=== PATIENT | female | born 1995 | race Caucasian/White ===

== ENCOUNTER → 2019-10-10 12:41 | Outpatient (BNVA) | payer OTHER, MEDICAID, SELFPAY | PROVIDERS: Family Provider Family Medicine; Visit Provider Nurse Practitioner Family | DX: J02.8 Acute pharyngitis due to other specified organisms (principal) | CPT/HCPCS: 87081; 87880 ==

== ENCOUNTER 2019-11-01 20:34 | Emergency (ER) | payer MEDICAID, SELFPAY ==
[2019-11-01 20:49] VITALS: BP 150/103; PULSE 109; RESP 18; TEMP 35.8; O2SAT 97
--- NOTE | 2019-11-01 21:08 | USR_ITS ---
NOTE: Report was unsigned for reason: Order was edited. Original Signature date and time was: 11/01/19 PROCEDURE INFORMATION: Exam: US , Transvaginal Exam date and time: 11/01/2019 9:43 PM Age: 24 years old Clinical indication: Other: Vag bleed unsure of dates; Patient HX: on home preg test; Additional info: Cramping and vaginal bleeding TECHNIQUE: Imaging protocol: Real-time transvaginal obstetrical ultrasound of the maternal pelvis and a first trimester with image documentation. Transvaginal imaging was used for better evaluation of the fetus and adnexa. COMPARISON: US [facility] [place] OB > 14 weeks 09/26/2017 7:51 AM FINDINGS: GESTATION: Gestation: No IUP is identified. MATERNAL: Uterus: Uterus is normal in size and appearance. Endometrium is thickened measuring 15 mm. Right adnexa: Right ovary is unremarkable. Left adnexa: There is a small simple cyst in the left ovary measuring around 13 mm. MTDD US/US OB lmt with transvaginal IMPRESSION: No IUP is identified. Correlation with quantitative beta HCG levels is suggested. Follow-up ultrasound is recommended.
--- NOTE | 2019-11-01 21:19 | ED_ITS ---
HPI - General: Chief complaint: Vaginal Bleeding Stated complaint: -06/07 DUE DATE/SON JUMPED ON BELLY Time Seen by Provider: 11/01/19 21:08 History of Present Illness: HPI Narrative: Patient is a 24-year-old female that has had a positive at-home test and is projected to be around 10 to 11 weeks who comes into the ED with some vaginal bleeding and cramping. Patient's last normal. Was close to 2 months ago. She had some light bleeding about 4 weeks ago but it was not not like her normal. Patient states that yesterday her 2-year-old son jumped off the couch and landed on her belly. Last night she started to have some spotting and some pelvic cramping. The bleeding resolved last night and she is not have any vaginal bleeding at all today. She still has some pelvic cramping. She took Tylenol for the cramping pain at 8:30 PM tonight. Denies any UTI symptoms. Patient states she does not need to get the RhoGam shot and members her previous OB telling her to tell her next OB doctor that. Associated symptoms: Deny abdominal pain, dysuria, headache(s), nausea or vomiting Review of Systems Const: Denies: fever, chills or fatigue Eyes: Denies: change in vision or eye discomfort ENMT: Denies: throat pain, painful swallowing, nasal discharge or nasal congestion Card: Denies: chest pain, palpitations, edema, swelling of feet/ankles, shortness of breath on exertion or shortness of breath when lying down Resp: Denies: shortness of breath, productive cough or non-productive cough GI: Denies: abdominal pain, nausea, vomiting, diarrhea, constipation or blood in stool : Reports: vaginal bleeding (spotting yesterday, has resolved today) and pelvic pain; Denies: flank pain, painful urination or blood in urine Musc: Denies: neck pain, back pain or extremity swelling Skin/Breast: Denies: rash or new lesion Neuro: Denies: headache, numbness in extremities or weakness in extremities PFS ED PFSH: Social History Smoking and tobacco status: current every day smoker Second hand smoke exposure: No Physical Exam Narrative: EXAM NARRATIVE: Patient is a 24-year-old female that is sitting comfortably on the exam bed when I enter the room. She is showing no signs of acute distress or pain. Const: COMMON NORMALS: oriented x3 HENMT: COMMON NORMALS: normocephalic HEAD & SCALP: normocephalic MOUTH: oral and palatal mucosa normal THROAT: posterior oropharynx normal and uvula midline Eye: COMMON NORMALS: PERRL PUPIL: Yes PERRL Neck/C-Spine: COMMON NORMALS: supple GENERAL: Yes normal visual inspection Resp: COMMON NORMALS: normal respiratory effort, no retractions, no use of accessory muscles and clear to auscultation bilaterally EFFORT & INSPECTION: Yes able to speak in complete sentences AUSCULTATION: clear to auscultation bilaterally Cardio: COMMON NORMALS: regular rate, regular rhythm, S1 normal heart sound, S2 normal heart sound, no gallops, no clicks, no murmurs and peripheral pulses 2+ throughout RATE: regular rate RHYTHM: regular rhythm HEART SOUNDS: S1 normal and S2 normal PERIPHERAL PULSES: pulses 2+ throughout GI: COMMON NORMALS: normal to inspection, nondistended, normoactive bowel sounds, soft to palpation and no masses INSPECTION: Yes central obesity PALPATION: Yes soft and Yes tender Details: other (Pelvic?right and left side mild tenderness upon palpation.) : COMMON NORMALS: Yes no CVA tenderness BLADDER/KIDNEY EXAM: Yes no CVA tenderness Back/Pelvis: COMMON NORMALS: no CVA tenderness Extremity: COMMON NORMALS: normal to inspection Neuro: COMMON NORMALS: oriented x3 and moves all extremities Skin: COMMON NORMALS: no rashes or lesions noted GENERAL SKIN EXAM: no rashes or lesions noted and dry skin Course Vital Signs: Vital signs: Vital Signs Temperature 96.4 F L 11/01/19 20:49 Pulse Rate 88 11/01/19 22:20 Respiratory Rate 18 11/01/19 22:20 Blood Pressure 110/80 11/01/19 22:20 Pulse Oximetry 97 11/01/19 22:20 MDM - OB/Uterine Contractions MDM Narrative: Medical decision making narrative: Patient is a 24-year-old female comes to the ED with a positive test at home and now having some vaginal bleeding and cramping. Vaginal bleeding was light yesterday and has not had any bleeding today. Pelvic pain cramping is mild. Today patient was unaware of how far along she currently is, but thought she is possibly 11 weeks . hCG quant was 182. Ultrasound showed no intrauterine identified. CBC and CMP and UA were all unremarkable. Patient has a scheduled appointment with her PCP/OB in about a week. I told patient to come back to the ED if symptoms worsen or she has any intense abdominal pain, severe vaginal bleeding or fevers. Patient understood and agreed with plan. Lab Data: Attestation: I reviewed the patient's lab results. Labs: Lab Results 11/01/19 11/01/19 11/01/19 Range/Units 20:57 21:24 21:24 WBC 9.4 (4.0-10.0) 10^3/ uL RBC 4.71 (4.1-5.3) 10^6/u L Hgb 13.3 (11.5-15.3) g/dL Hct 40.6 (37.0-47.0) % MCV 86.2 (81-99) fL MCH 28.2 (28.0-34.0) pg MCHC 32.8 (30.0-36.0) g/dL RDW 12.8 (12.1-15.1) % Plt Count 252 (130-400) 10^3/c mm MPV 10.1 (7.4-10.4) fL Neut % (Auto) 66.6 % Lymph % (Auto) 23.3 % [place] % (Auto) 6.7 % Eos % (Auto) 2.6 % Baso % (Auto) 0.3 % Neut # (Auto) 6.3 (1.8-7.7) 10^3/u L Lymph # (Auto) 2.2 (0.8-4.8) 10^3/u L [place] # (Auto) 0.6 (0.2-0.9) 10^3/u L Eos # (Auto) 0.2 (0.0-0.8) 10^3/u L Baso # (Auto) 0.0 (0.0-0.1) 10^3/u L Nucleated RBC % (a uto) 0 % Nucleated RBCs # 0.0 /100WBC Sodium (136-145) mmol/L Potassium (3.5-5.1) mmol/L Chloride (98-107) mmol/L Carbon Dioxide (22-29) mmol/L Anion Gap (5-19) BUN (6-20) mg/dL Creatinine (0.5-0.9) mg/dL GFR Calculation (90-130) mL/min Glucose (65-115) mg/dL Calculated Osmolal ity (285-295) mOsm/k g Calcium (8.5-10.5) mg/dL Total Bilirubin (0.15-1.2) mg/dL AST (0-32) U/L ALT (0-33) U/L Alkaline Phosphata se (35-105) IU/L Total Protein (6.6-8.7) g/dL Albumin (3.5-5.2) g/dL Globulin (1.3-4.6) g/dL Ser , Trent i-Qnt mIU/mL Urine Color Yellow (Yellow) Urine Appearance Cloudy (CLEAR) Urine pH 5 (5-7) Ur Specific Gravit y 1.020 (1.005-1.030) Urine Protein Neg (Negative) Urine Glucose (UA) Norm (Normal) Urine Ketones Negative (Negative) Urine Blood Neg (Negative) Urine Nitrate Negative (Negative) Urine Bilirubin Neg (NEGATIVE) Urine Urobilinogen Norm (Negative) mg/dL Ur Leukocyte Jennifer ase Negative (Negative) Urine RBC None (0-2) /hpf Urine WBC None (0-5) /hpf Ur Squamous Epith Cells 5-10 H (0-5) Urine Bacteria 1+ H (NONE) Blood Type O Positive Rho(D) Type Positive Antibody Screen Negative 11/01/19 Range/Units 21:24 WBC (4.0-10.0) 10^3/ uL RBC (4.1-5.3) 10^6/u L Hgb (11.5-15.3) g/dL Hct (37.0-47.0) % MCV (81-99) fL MCH (28.0-34.0) pg MCHC (30.0-36.0) g/dL RDW (12.1-15.1) % Plt Count (130-400) 10^3/c mm MPV (7.4-10.4) fL Neut % (Auto) % Lymph % (Auto) % [place] % (Auto) % Eos % (Auto) % Baso % (Auto) % Neut # (Auto) (1.8-7.7) 10^3/u L Lymph # (Auto) (0.8-4.8) 10^3/u L [place] # (Auto) (0.2-0.9) 10^3/u L Eos # (Auto) (0.0-0.8) 10^3/u L Baso # (Auto) (0.0-0.1) 10^3/u L Nucleated RBC % (a uto) % Nucleated RBCs # /100WBC Sodium 137 (136-145) mmol/L Potassium 3.7 (3.5-5.1) mmol/L Chloride 101 (98-107) mmol/L Carbon Dioxide 24 (22-29) mmol/L Anion Gap 15.7 (5-19) BUN 9 (6-20) mg/dL Creatinine 0.7 (0.5-0.9) mg/dL GFR Calculation 101.1 (90-130) mL/min Glucose 98 (65-115) mg/dL Calculated Osmolal ity 280 L (285-295) mOsm/k g Calcium 9.7 (8.5-10.5) mg/dL Total Bilirubin 0.3 (0.15-1.2) mg/dL AST 15 (0-32) U/L ALT 16 (0-33) U/L Alkaline Phosphata se 67 (35-105) IU/L Total Protein 7.2 (6.6-8.7) g/dL Albumin 4.5 (3.5-5.2) g/dL Globulin 2.7 (1.3-4.6) g/dL Ser , Trent i-Qnt 182.10 mIU/mL Urine Color (Yellow) Urine Appearance (CLEAR) Urine pH (5-7) Ur Specific Gravit y (1.005-1.030) Urine Protein (Negative) Urine Glucose (UA) (Normal) Urine Ketones (Negative) Urine Blood (Negative) Urine Nitrate (Negative) Urine Bilirubin (NEGATIVE) Urine Urobilinogen (Negative) mg/dL Ur Leukocyte Jennifer ase (Negative) Urine RBC (0-2) /hpf Urine WBC (0-5) /hpf Ur Squamous Epith Cells (0-5) Urine Bacteria (NONE) Blood Type Rho(D) Type Antibody Screen Imaging Data^: US OB: Attestation: I personally reviewed and interpreted this imaging study as follows: Radiologist's impression: [address] [address] Ultrasound Report Signed Patient: Arpit Loving Unit #: [id number] : 1995 Age/Sex: 24 / F ADM Date: 11/01/19 Loc: ER Room/Bed: Attending Dr: Ordering Provider/Ordering MD: Joe Neff Date of Service: 11/01/19 Procedure(s): US OB lmt with transvaginal Accession Number(s): [id number] Report Number: [id number] PROCEDURE INFORMATION: Exam: US , Transvaginal Exam date and time: 11/01/2019 9:43 PM Age: 24 years old Clinical indication: Other: Vag bleed unsure of dates; Patient HX: on home preg test; Additional info: Cramping and vaginal bleeding TECHNIQUE: Imaging protocol: Real-time transvaginal obstetrical ultrasound of the maternal pelvis and a first trimester with image documentation. Transvaginal imaging was used for better evaluation of the fetus and adnexa. COMPAR[place] [facility] [place] > 14 weeks 09/26/2017 7:51 AM FINDINGS: GESTATION: Gestation: No IUP is identified. MATERNAL: Uterus: Uterus is normal in size and appearance. Endometrium is thickened measuring 15 mm. Right adnexa: Right ovary is unremarkable. Left adnexa: There is a small simple cyst in the left ovary measuring around 13 mm. US/US OB lmt with transvaginal IMPRESSION: No IUP is identified. Correlation with quantitative beta HCG levels is suggested. Follow-up ultrasound is recommended. Dictated By: Ye Gunderson Signed By: Ye Gunderson Signed Date/Time: 11/01/192201 DD/ 00 Discharge Plan Discharge Patient Disposition: Home, Self-Care Clinical Impression: Qualifiers: Weeks of gestation: less than 8 weeks Qualified Code(s): Z3A.01 - Less than 8 weeks gestation of Condition: Stable Prescriptions: No Action RF: 0 Discharge Orders: Discharge Order (Routine); Ordered 11/01/19 Ordered By: Joe Neff Referrals: Angelito Rincon MD [Family Provider] - Discharge Diet: Regular Discharge Activity: Resume usual activity Patient Instructions: (ED), Diet (GEN) Activity Restrictions/Additional Instructions: Follow-up with your OB/PCP at your previously scheduled appointment in 7-10 days. If you start developing a fever and and intense pelvic pain return to the ED immediately. Discharge Date/Time: 11/01/19 22:20 Coding Level of Care Code ED Planer Setter for Chg Fwd Exam Comprehensive
[2019-11-01 21:30] LABS: Basophils % 0.3 %; Eosinophils # 0.2 10^3/uL (0.0-0.8); Eosinophils % 2.6 %; Hematocrit 40.6 % (37.0-47.0); Hemoglobin 13.3 g/dL (11.5-15.3); Lymphocytes # 2.2 10^3/uL (0.8-4.8); Lymphocytes % 23.3 %; Mean Corpuscular HGB Conc 32.8 g/dL (30.0-36.0); Mean Corpuscular Hemoglobin 28.2 pg (28.0-34.0); Mean Corpuscular Volume 86.2 fL (81-99); Mean Platelet Volume 10.1 fL (7.4-10.4); Monocytes # 0.6 10^3/uL (0.2-0.9); Monocytes % 6.7 %; Neutrophils # 6.3 10^3/uL (1.8-7.7); Neutrophils % 66.6 %; Nucleated Red Blood Cells % 0 %; Platelet Count 252 10^3/cmm (130-400); Red Blood Count 4.71 10^6/uL (4.1-5.3); Red Cell Distribution Width 12.8 % (12.1-15.1); White Blood Count 9.4 10^3/uL (4.0-10.0)
[2019-11-01 21:40] LABS: Bilirubin Urine Neg (NEGATIVE); Blood Urine Neg (Negative); Glucose Urine UA Norm (Normal); Ketones Urine Negative (Negative); Leukocyte Esterase Urine Negative (Negative); Nitrate Urine Negative (Negative); Protein Urine Neg (Negative); Urine Appearance Cloudy (CLEAR); Urine Color Yellow (Yellow); Urobilinogen Urine Norm (Negative); pH Urine 5 (5-7)
[2019-11-01 21:47] LABS: Add Urine Culture? No; Bacteria Urine 1+
[2019-11-01 21:56] LABS: Alanine Aminotransferase 16 U/L (0-33); Albumin Level 4.5 g/dL (3.5-5.2); Alkaline Phosphatase 67 IU/L (35-105); Anion Gap 15.7 (5-19); Aspartate Amino Transferase 15 U/L (0-32); Blood Urea Nitrogen 9 mg/dL (6-20); Calcium 9.7 mg/dL (8.5-10.5); Carbon Dioxide 24 mmol/L (22-29); Chloride 101 mmol/L (98-107); Globulin 2.7 g/dL (1.3-4.6); Glomerular Filtration Rate 101.1 mL/min (90-130); Glucose 98 mg/dL (65-115); Osmolality Calculated 280 mOsm/kg (285-295); Potassium 3.7 mmol/L (3.5-5.1); Sodium 137 mmol/L (136-145); Total Bilirubin 0.3 mg/dL (0.15-1.2); Total Protein 7.2 g/dL (6.6-8.7)
[2019-11-01 22:20] VITALS: BP 110/80; PULSE 88; RESP 18; O2SAT 97
== END 2019-11-01 22:20 | disposition home or self-care (01) ==
PROVIDERS: Emergency Provider Physician Assistant; Family Provider Family Medicine
DX: O20.9 Hemorrhage in early pregnancy, unspecified (principal); Z3A.01 Less than 8 weeks gestation of pregnancy; O99.331 Smoking (tobacco) complicating pregnancy, first trimester
CPT/HCPCS: 12345; 36415; 76815; 76817; 80053; 81001; 84702; 85025; 86850; 86900; 99282; A9270

== ENCOUNTER 2020-06-24 12:50 | Outpatient (CLI) | payer MEDICAID, SELFPAY ==
[2020-06-24 13:29] VITALS: BP 118/64; PULSE 98
[2020-06-24 13:30] VITALS: RESP 17; TEMP 36.7
[2020-06-24 14:05] LABS: Bilirubin Urine Neg (Negative); Blood Urine Neg (Negative); Glucose Urine UA Norm (Normal); Ketones Urine Negative (Negative); Leukocyte Esterase Urine Negative (Negative); Nitrate Urine Negative (Negative); Protein Urine Neg (Negative); Specific Gravity, Urine 1.015 (1.005-1.030); Urine Appearance Hazy (CLEAR); Urine Color Yellow (Yellow); Urobilinogen Urine Norm (Negative); pH Urine 6.5 (5-7)
[2020-06-24 14:14] LABS: RBC Urine 0-4 /hpf (0-2)
[2020-06-24 14:15] LABS: Add Urine Culture? No; Bacteria Urine 2+ /hpf; Squamous Epithelial Cell Urine 40-55 /hpf (0-5); Transitional Epi Cells Urine 0-4 /hpf
[2020-06-24 14:44] VITALS: BP 113/72; PULSE 94; RESP 16; TEMP 36.7
[2020-06-24 15:08] VITALS: BMI 44.0
== END 2020-06-24 14:53 | disposition home or self-care (01) ==
LOC: OPOB 13:14 → OBGYN 13:14
PROVIDERS: PCP Nurse Practitioner Family; Visit Provider Family Medicine
DX: O26.899 Other specified pregnancy related conditions, unspecified trimester (principal); Z3A.00 Weeks of gestation of pregnancy not specified; R10.9 Unspecified abdominal pain
CPT/HCPCS: 59025; 81001; 99211

== ENCOUNTER 2020-07-07 09:57 | Outpatient (CLI) | payer MEDICAID, SELFPAY ==
[2020-07-07] VITALS (19 sets, daily range): BP systolic 0–134; BP diastolic 0–79; PULSE 74–114; RESP 17–18; TEMP 36.8; BMI 43.7
[2020-07-07] MEDS: miSOPROStol 100 mcg tablet 25 MCG VAGINAL ×3 (10:59→22:28)
[2020-07-07 12:05] LABS: Basophils # 0.1 10^3/uL (0.0-0.1); Basophils % 0.4 %; Eosinophils # 0.2 10^3/uL (0.0-0.8); Eosinophils % 1.1 %; Hematocrit 36.7 % (37.0-47.0); Hemoglobin 11.9 g/dL (11.5-15.3); Lymphocytes # 2.5 10^3/uL (0.8-4.8); Lymphocytes % 15.6 %; Mean Corpuscular HGB Conc 32.4 g/dL (30.0-36.0); Mean Corpuscular Hemoglobin 28.7 pg (28.0-34.0); Mean Corpuscular Volume 88.6 fL (81-99); Mean Platelet Volume 13.3 fL (7.4-10.4); Monocytes # 0.6 10^3/uL (0.2-0.9); Neutrophils # 12.44 10^3/uL (1.8-7.7); Neutrophils % 78.1 %; Nucleated Red Blood Cells % 0 %; Platelet Count 210 10^3/cmm (130-400); Red Blood Count 4.14 10^6/uL (4.1-5.3); White Blood Count 15.9 10^3/uL (4.0-10.0)
[2020-07-07 13:47] LABS: Slide Review Slide Review Perform
[2020-07-07] MEDS: morphine 4 mg/mL SDV 1 mL 8 MG IM (22:23)
[2020-07-07] MEDS: promethazine 25 mg/mL SDV 1 mL IM (22:24)
[2020-07-08 07:31] VITALS: BP 121/78; PULSE 76
[2020-07-08 07:39] VITALS: BP 121/78; PULSE 76
--- NOTE | 2020-07-09 09:56 | P.SS_ITS ---
Short Stay Summary Providers Date of Admit/Discharge: 07/09/20 Attending Provider: Aubrey Mcgraw MD Primary Care Provider: LEANN Hodges Chief Complaint: IUP HPI History of Present Illness Arpit Loving is a 25 year old female who is a 2, para 1 patient with an EDC of 07/05/2020. She was admitted to [facility] labor and delivery on 07/07/2020 for attempted induction of labor. She was given misoprostol 25 mcg x 3 doses which made her have contractions but very little cervical change although mild thinning. The patient was overall doing well with demonstrating great variability and very reassuring heart tones. Mom and fetus were felt to be stable for discharge to return for increased contractions or return on 07/11/2020 for attempted induction again. Review of Systems Const: Denies: fever(s), chills, body aches or change in appetite Card: Denies: chest pain, swelling of feet/ankles or dyspnea on exertion Resp: Denies: dyspnea, productive cough or non-productive cough GI: Denies: abdominal pain, nausea or vomiting : Denies: flank pain, difficulty voiding or vaginal discharge Musc: Denies: neck pain, back pain or joint stiffness Neuro: Denies: headache(s) or behavioral changes Psych: Denies: anxiety or depression Endo: Denies: polyuria or polydipsia Home Meds/Allergies Home Medications and Allergies Home Medications Medication Instructions Recorded Confirmed Type 1 tab PO DAILY 11/01/19 07/08/20 History Allergies Allergy/AdvReac Type Severity Reaction Status Date / Time No Known Allergies Allergy Verified 03/02/20 15:29 PFSH Acute PFSH: Social History Smoking and tobacco status: current every day smoker Second hand smoke exposure: No Female Reproductive History: : 2 Vitals/I&O/Wt Last Vital Signs Temp 98.2 F 07/07/20 22:12 Pulse 76 07/08/20 07:39 Resp 18 07/07/20 22:12 BP 121/78 07/08/20 07:39 Weight last 48 hrs Weight 108.409 kg Physical Exam Const: COMMON NORMALS: no acute distress and no limitations Resp: COMMON NORMALS: normal respiratory effort, No retractions, No use of accessory muscles and clear to auscultation bilaterally AUSCULTATION: clear to auscultation bilaterally Cardio: COMMON NORMALS: regular rate, regular rhythm and No murmurs present (Cardio) RATE: regular rate RHYTHM: regular rhythm GI: COMMON NORMALS: Normal to inspection, nondistended, normoactive bowel sounds present, Soft to palpation and non-tender PALPATION: Yes Soft to palpation : COMMON NORMALS: Yes no CVA tenderness and Yes normal appearance of the cervix (Approximately 3 cm dilated and not much change.) BLADDER/KIDNEY EXAM: Yes no CVA tenderness Back/Pelvis: COMMON NORMALS: no CVA tenderness Extremity: COMMON NORMALS: normal to inspection and full ROM Neuro: COMMON NORMALS: CN's II-XII intact bilaterally Psych: COMMON NORMALS: mental status grossly normal and Normal thought process present THOUGHT PROCESS: Normal thought process present Hospital Course Hospital Course Patient was monitored for almost 48 hours with misoprostol cervical ripening for induction purposes. She made very little cervical change but infant looks very good and the patient was tired and desired to go home and return if contractions got stronger or to come in on the for another attempt at induction. Mother and appear to be stable for this. Diagnoses at Discharge Discharge Diagnosis (1) Term : Status: Acute Discharge Plan Discharge Patient Disposition: Home Prescriptions: Continued 1 tab PO DAILY RF: 0 Discharge Orders: Discharge Order (Routine); Ordered 07/08/20 Ordered By: Aubrey Mcgraw Diet: Usual diet Activity: Resume usual activity Patient Instructions: OB Undelivered Discharge Activity Restrictions/Additional Instructions: rest. drink plenty of fluids. return to OB on 07/11/20 at 1000 Discharge Date/Time: 07/08/20 07:45 Attestations Medical Necessity Statement*: Patient was admitted for induction of term but may very little change. His and mother appear to be doing well she was allowed to go home to return for increased contractions or otherwise return on the for reattempted induction. Time Spent in Patient Care*: less than 30 min Quality Metrics Clinical Quality Measures: During this hospital stay, did patient experience: None Coding Level of Care Code Acute Telecommunication Lines Repairer for Chg Fwd Diagnoses Term Z34.90
== END 2020-07-08 07:45 | disposition home or self-care (01) ==
LOC: OBGYN 07-08 07:38 → OPOB 07-08 11:46 → OBGYN 07-08 11:47
PROVIDERS: PCP Nurse Practitioner Family; Visit Provider Family Medicine
DX: O26.899 Other specified pregnancy related conditions, unspecified trimester (principal); Z3A.00 Weeks of gestation of pregnancy not specified
CPT/HCPCS: 12345; 36415; 59025; 85025; 96372; 99211; G0378; G0379; J2270; J2550

== ENCOUNTER 2020-07-11 09:55 | Inpatient (IN) | payer MEDICAID, SELFPAY ==
[2020-07-11] VITALS (51 sets, daily range): BP systolic 0–149; BP diastolic 0–88; PULSE 66–116; RESP 16–20; TEMP 36.9–37.1; O2SAT 86–100; BMI 43.9
[2020-07-11] MEDS: miSOPROStol 100 mcg tablet 25 MCG VAGINAL ×2 (10:51→15:46)
[2020-07-11 11:43] LABS: Basophils # 0.1 10^3/uL (0.0-0.1); Basophils % 0.3 %; Eosinophils # 0.2 10^3/uL (0.0-0.8); Eosinophils % 1.2 %; Hematocrit 35.5 % (37.0-47.0); Hemoglobin 11.6 g/dL (11.5-15.3); Lymphocytes # 2.5 10^3/uL (0.8-4.8); Lymphocytes % 16.7 %; Mean Corpuscular HGB Conc 32.7 g/dL (30.0-36.0); Mean Corpuscular Hemoglobin 28.6 pg (28.0-34.0); Mean Corpuscular Volume 87.4 fL (81-99); Mean Platelet Volume 12.4 fL (7.4-10.4); Monocytes # 0.8 10^3/uL (0.2-0.9); Monocytes % 5.1 %; Neutrophils # 11.16 10^3/uL (1.8-7.7); Neutrophils % 76.2 %; Nucleated Red Blood Cells % 0 %; Platelet Count 257 10^3/cmm (130-400); Red Blood Count 4.06 10^6/uL (4.1-5.3); Red Cell Distribution Width 13.8 % (12.1-15.1); White Blood Count 14.7 10^3/uL (4.0-10.0)
--- NOTE | 2020-07-11 15:28 | P.HP_ITS ---
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 There was an attempted induction a few days ago on this patient but as infant look good and she was not making any progress she was allowed to go home to return today for another attempt at cervical ripening for induction purposes due to term . She has had no problems since she was last here and just occasional contractions that she has noted. She had no significant problems through her course. Her blood type was O+ with antibody screen negative. Her group B strep and Covid were both negative. Present Details : 2 Para: 1 Labs Rubella: Immune RPR: Negative GBS: Negative Review of Systems Const: Denies: fever(s), chills or change in appetite Card: Denies: chest pain, palpitations or edema (Nothing significant.) Resp: Denies: dyspnea, productive cough or non-productive cough GI: Reports: heartburn (Mild and controlled with medication.); Denies: abdominal pain, nausea or vomiting : Denies: flank pain or vaginal discharge Musc: Denies: back pain or extremity pain Neuro: Denies: headache(s), weakness in extremities or sensory changes Psych: Denies: anxiety or depression Endo: Denies: polydipsia or tired all the time Medications/Allergies Home Medications Medication Instructions Recorded Confirmed Last Taken Type 1 tab PO DAILY 11/01/19 07/08/20 Unknown History Allergies Allergy/AdvReac Type Severity Reaction Status Date / Time No Known Allergies Allergy Verified 03/02/20 15:29 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: Social History Smoking and tobacco status: current every day smoker Second hand smoke exposure: No Vitals/I&O/Wt Last Vital Signs Temp 98.4 F 07/11/20 10:22 Pulse 82 07/11/20 14:56 Resp 18 07/11/20 10:22 BP 98/62 07/11/20 14:56 Weight last 48 hrs Weight 108.862 kg Physical Exam Const: COMMON NORMALS: no acute distress and well nourished Resp: COMMON NORMALS: normal respiratory effort, No retractions and clear to auscultation bilaterally Cardio: COMMON NORMALS: regular rate, regular rhythm and No murmurs present (Cardio) GI: COMMON NORMALS: Normal to inspection, nondistended, normoactive bowel sounds present, Soft to palpation and non-tender : OB/EXTERNAL & SPECULUM: external exam normal MANUAL OB EXAM: dilated 3 cm, effaced 50% and station high Extremity: COMMON NORMALS: normal to inspection, full ROM and capillary refill normal Neuro: COMMON NORMALS: CN's II-XII intact bilaterally SENSOR IUM/ORIENTATION: Yes alert Psych: COMMON NORMALS: mental status grossly normal, Normal thought process present, cooperative and normal affect Data : 07/11/20 11:05 A&P Assessment and plan (1) Post-dates : Patient has been admitted to the hospital for induction of postdates . She still pretty high and thick we will continue with misoprostol cervical ripening. If she begins making changes but we need to increase contractions we will add Pitocin augmentation. She will be monitored closely for problems. Status: Acute Attestations 2 Medical Necessity Statement*: This patient has a postdates and requires admission for cervical ripening for induction purposes. Coding Level of Care Code Acute Radiation Oncologist for Chg Fwd Diagnoses Post-dates O48.0
[2020-07-11] MEDS: dextrose 5%-lactated ringers 1,000 ML 125 ML IV (17:49)
[2020-07-11] MEDS: fentaNYL 50 mcg/mL INJ 2mL IV ×4 (17:50→22:16)
[2020-07-11] MEDS: lactated ringers 1,000 ML 999 ML IV (21:05)
[2020-07-11] MEDS: ondansetron 2 mg/ML SDV 2 mL 4 MG IVP (22:24)
--- NOTE | 2020-07-11 23:35 | ANES.PROC ---
Anesthesia Procedures Procedure/Date: 07/11/20 labor Procedure Narrative: epidural Epidural: Time Out Performed: Yes Consents Signed: Procedure Consent and NPO Consent Consent: requested by attending/covering physician, from patient, risks and benefits reviewed and patient agrees to proceed Lumbar Level: L2-L3 Epidural position: sitting Epidural procedure: sterile prep of area (betadine), 1% lidocaine to numb the area (3), 18 g needle, neg for paresthesia, test dose given, 1.5% xylocaine 1:200k epi (5ml), 0.2% Ropivacaine bolus ml (5ml), placed PCEA, no systemic response, sterile dressing applied, L.U.D. no apparent complications and 0.2% Ropiavacaine @ mls/hr (10ml/hr)
[2020-07-12] VITALS (56 sets, daily range): BP systolic 0–132; BP diastolic 0–86; PULSE 64–102; RESP 15–17; TEMP 36.4–37.5; O2SAT 90–100
--- NOTE | 2020-07-12 00:06 | ANES.PROC ---
Anesthesia Procedures Procedure/Date: 07/12/20 epidural bolus Procedure Narrative: Pt states legs feels numb to touch but has pain in vaginal area with contractions. Pt given 100mcg Fentanyl and 5ml Lidocaine 1%MPF via epidural. Will continue to monitor pt
[2020-07-12] MEDS: oxytocin 30 UNIT/500 ML BAG 600 UNIT IV (02:40)
--- NOTE | 2020-07-12 02:52 | P.PCNOB_ITS ---
Delivery Note: Date of delivery: July 12, 2020 this 25-year-old 2 now para 2 female at 41 weeks gestation was admitted yesterday morning for misoprostol cervical ripening for induction purposes. She was given 3 doses of misoprostol and did finally go into active labor with spontaneous rupture membranes and moderate clear fluid obtained. There were several decelerations around that time but with fluid bolus, oxygen and positioning this resolved. She did receive epidural anesthesia and the did well with this. She dilated complete cervical dilatation and was able to deliver by spontaneous vaginal delivery a healthy, viable male at 02 33. After delivery of the head the mouth and nose were suctioned at the perineum followed by an approximately 1 minute shoulder dystocia with the shoulders transverse. The left shoulder was fine grasped and the was rotated in a clockwise fashion and the was delivered without problems. The was suctioned again and was a little bit stunned the cord was immediately clamped and cut and the was passed off to the nurses at the warmer. The perked up quickly and had Apgars of 8 and 9 at 1 and 5 minutes respectively. The umbilical cord had 3 blood vessels. There was a very small midline vaginal laceration almost to the perineum which was repaired with Vicryl suture. There were no other complications. Pre-Delivery Course: This patient was followed through her course by this physician without significant problems. At 40 weeks and 2 days gestation there was an attempt of induction of labor with misoprostol x3 doses. During that time she had some contractions but made no cervical change. As the looked very good on the monitor decision was made after discussion with the patient to allow her to go home and return on July 11 for another attempt at cervical ripening. Maternal blood type was O+ with antibody screen negative. Hepatitis B, hepatitis C, RPR and HIV were negative. Rubella was immune and group B strep and Covid testing were both negative. Delivery: Spontaneous vaginal delivery. A&P Assessment and plan (1) Normal spontaneous vaginal delivery: Patient did very well with labor and delivery process. She will be followed for routine postdelivery care. Status: Acute Coding Level of Care Code Acute Dividend Deposit Voucher Clerk for Lorraine Fwmoreno Diagnoses Normal spontaneous vaginal delivery O80
[2020-07-12] MEDS: benzocaine-menthol 78 gm Canister 1 SPRAY TOPICAL (04:42)
[2020-07-12] MEDS: lanolin oint 7 gm 1 APPLIC TOPICAL (04:42)
[2020-07-12] MEDS: HYDROcodone-acetaminophen 5-325 mg Tablet PO ×3 (06:26→19:17)
[2020-07-12] MEDS: docusate sodium 100 mg Capsule PO (08:27)
[2020-07-12] MEDS: prenatal vitamin Capsule 1 CAP PO (08:27)
[2020-07-12] MEDS: ibuprofen 800 mg tablet PO ×3 (08:27→20:39)
[2020-07-12 17:21] LABS: Hemoglobin 11.6 g/dL (11.5-15.3); Mean Corpuscular HGB Conc 33.1 g/dL (30.0-36.0); Mean Corpuscular Hemoglobin 29.1 pg (28.0-34.0); Mean Corpuscular Volume 87.7 fL (81-99); Mean Platelet Volume 12.3 fL (7.4-10.4); Platelet Count 257 10^3/cmm (130-400); Red Blood Count 3.99 10^6/uL (4.1-5.3); Red Cell Distribution Width 13.7 % (12.1-15.1); White Blood Count 18.8 10^3/uL (4.0-10.0)
[2020-07-13] MEDS: HYDROcodone-acetaminophen 5-325 mg Tablet PO (01:26)
[2020-07-13 05:16] VITALS: BP 97/66; PULSE 63; RESP 16; TEMP 36.7; O2SAT 97
--- NOTE | 2020-07-13 07:18 | P.DS_ITS ---
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 She finally went to active labor and delivered by spontaneous vaginal delivery healthy, viable male infant. There is no episiotomy and a very small vaginal laceration. Since delivery, the patient is done extremely well. She is ambulating well and tolerating a regular diet. She has had very mild lochia with no significant clots or cramping. is breast-feeding well. She is felt to be stable for discharge. Information Peripartum Data: Delivery Method: Vaginal Physical Exam Const: COMMON NORMALS: no acute distress HENMT: COMMON NORMALS: normocephalic and Normal nasal mucous membranes and turbinates present HEAD & SCALP: normocephalic NOSE: Normal nasal mucous membranes and turbinates present Resp: COMMON NORMALS: normal respiratory effort, No retractions, No use of accessory muscles and clear to auscultation bilaterally AUSCULTATION: clear to auscultation bilaterally Cardio: COMMON NORMALS: regular rate and regular rhythm RATE: regular rate RHYTHM: regular rhythm GI: COMMON NORMALS: Normal to inspection, nondistended, normoactive bowel sounds present, Soft to palpation (Fundus is firm.) and non-tender PALPATION: Yes Soft to palpation (Fundus is firm.) Extremity: COMMON NORMALS: normal to inspection, full ROM and no pedal edema Neuro: GAIT: Yes Normal gait present Psych: COMMON NORMALS: mental status grossly normal and Normal thought process present THOUGHT PROCESS: Normal thought process present Urinary Catheter Management^: Luo Latex: Cath Placed During This Visit: yes, but has since been removed by the nurse Reason for Continuing Indwelling Catheter: Decision to DC Catheter Urinary Catheter Date of Insertion: 07/12/20 Urinary Catheter Time of Insertion: 02:00 Date Urinary Catheter Removed: 07/12/20 Time Urinary Catheter Discontinued: 02:27 Discharge Data Data Completed and Pending: Labs from last 24 hours 07/12/20 16:55 WBC 18.8 H RBC 3.99 L Hgb 11.6 Hct 35.0 L MCV 87.7 MCH 29.1 MCHC 33.1 RDW 13.7 Plt Count 257 MPV 12.3 H Vitals: Last Vital Signs Temp 98.0 F 07/13/20 05:16 Pulse 63 07/13/20 05:16 Resp 16 07/13/20 05:16 BP 97/66 07/13/20 05:16 Pulse Ox 97 07/13/20 05:16 Discharge Plan Discharge Patient Disposition: Home Condition: Stable Prescriptions: New docusate sodium [DOK] 100 mg Capsule 100 mg PO BID Qty: 60 RF: 1 ibuprofen 800 mg Tablet 800 mg PO TID Qty: 90 RF: 2 Continued 1 tab PO DAILY RF: 0 Discharge Orders: Discharge Order (Routine); Ordered 07/13/20 Ordered By: Aubrey Mcgraw Referrals: Aubrey Mcgraw MD [Physician] - 6 Weeks Discharge Diet: Usual diet Discharge Activity: Resume usual activity Discharge Attestations 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
[2020-07-13 07:30] VITALS: BP 111/76; PULSE 59; RESP 16; TEMP 36.7
--- NOTE | 2020-07-13 07:58 | PC.NURSE ---
MOM REPORTS BREAST FEEDING GOING WELL AND HAS NO CONCERNS. PROVIDED CONTACT INFORMATION.
[2020-07-13 08:00] VITALS: BP 111/76; PULSE 59; RESP 16; TEMP 36.7
--- NOTE | 2020-07-13 16:52 | PC.RESP ---
Smoking Cessation information sent to patient.
== END 2020-07-13 08:15 | disposition home or self-care (01) | DRG 807 ==
PROVIDERS: Admitting Provider Family Medicine; PCP Nurse Practitioner Family; Visit Provider Family Medicine
DX: O48.0 Post-term pregnancy (principal); Z37.0 Single live birth; Z3A.41 41 weeks gestation of pregnancy; O99.334 Smoking (tobacco) complicating childbirth; O76 Abnormality in fetal heart rate and rhythm complicating labor and delivery; O66.0 Obstructed labor due to shoulder dystocia; O70.0 First degree perineal laceration during delivery
CPT/HCPCS: 12345; 36415; 51702; 59025; 59409; 85025; 85027; J2405; J2795; J3010

== ENCOUNTER → 2020-08-27 11:49 | Outpatient (BNVA) | payer MEDICAID, SELFPAY | PROVIDERS: PCP Nurse Practitioner Family; Visit Provider Obstetrics & Gynecology | DX: Z20.828 Contact with and (suspected) exposure to other viral communicable diseases (principal); Z30.2 Encounter for sterilization | CPT/HCPCS: 87635 ==

== ENCOUNTER 2020-09-01 08:48 | Day surgery (SDC) | payer MEDICAID, SELFPAY ==
[2020-08-28 12:46] LABS: Basophils % 0.4 %; Eosinophils # 0.2 10^3/uL (0.0-0.8); Eosinophils % 2.6 %; Hematocrit 42.5 % (37.0-47.0); Hemoglobin 14.2 g/dL (11.5-15.3); Lymphocytes # 2.3 10^3/uL (0.8-4.8); Lymphocytes % 24.7 %; Mean Corpuscular HGB Conc 33.4 g/dL (30.0-36.0); Mean Corpuscular Hemoglobin 28.5 pg (28.0-34.0); Mean Corpuscular Volume 85.3 fL (81-99); Mean Platelet Volume 10.5 fL (7.4-10.4); Monocytes # 0.6 10^3/uL (0.2-0.9); Neutrophils # 6.03 10^3/uL (1.8-7.7); Neutrophils % 66.1 %; Nucleated Red Blood Cells % 0 %; Platelet Count 276 10^3/cmm (130-400); Red Blood Count 4.98 10^6/uL (4.1-5.3); Red Cell Distribution Width 12.5 % (12.1-15.1); White Blood Count 9.1 10^3/uL (4.0-10.0)
--- NOTE | 2020-08-28 13:16 | ANES.PREANE2 ---
Pre-Anesthetic Assessment Pre-Anesthetic Assessment: Height/Weight: Height 1.57 m Preop Diagnosis: undesired fertility Proposed Procedure: Operation Date: 09/01/20 07:00 Proposed Procedures p Lap Fulg,Removal of Tubes Sterilization 07944 Z30.2(Not Applicable) - Tree Pulido MD Was Beta Simona taken within 24 hours: N/A Social: Social History: No alcohol and No tobacco Exam: Pre-Anes Outpt Exam: alert, oriented x 3, clear to auscultation bilaterally and regular rate & rhythm Airway: Submandibular: WNL Cervical ROM: WNL MP: 2 Dentition: Full Metabolic: Metabolic: Morbid obesity Neuropsych: Comments: PCOS Anesthetic Plan: ASA status: 2 Anesthesia: General Risk of > 500 ml blood loss (7ml/kg in children): No PFSH Anesthesia PFSH: Medical History (Updated 08/03/20 @ 18:35 by Tree Pulido MD) PCOS (polycystic ovarian syndrome) Surgical History (Updated 08/03/20 @ 18:30 by Tree Pulido MD) S/P laparoscopic appendectomy Age 17. Family History (Updated 08/03/20 @ 18:31 by Tree Pulido MD) Sister Diabetes Grandfather Diabetes Paternal Grandmother Diabetes Paternal Hypertension Paternal Social History Smoking and tobacco status: current every day smoker cigarettes Second hand smoke exposure: No Alcohol intake: never Data Anesthesia CBC & Chem 7: 08/28/20 12:20 Other Labs: Laboratory Results - last 48 hr 08/28/20 12:20 WBC 9.1 RBC 4.98 Hgb 14.2 Hct 42.5 MCV 85.3 MCH 28.5 MCHC 33.4 RDW 12.5 Plt Count 276 MPV 10.5 H Neut % (Auto) 66.1 Lymph % (Auto) 24.7 Mcdonald % (Auto) 6.0 Eos % (Auto) 2.6 Baso % (Auto) 0.4 Neut # (Auto) 6.03 Lymph # (Auto) 2.3 Mcdonald # (Auto) 0.6 Eos # (Auto) 0.2 Baso # (Auto) 0.0 Nucleated RBC % (auto) 0 Nucleated RBCs # 0.0 Cardiac Studies: No Data to Display
[2020-09-01] VITALS (7 sets, daily range): BP systolic 117–136; BP diastolic 68–85; PULSE 67–87; RESP 16–22; TEMP 36.5–37.1; O2SAT 94–98
[2020-09-01 09:40] LABS: OR HCG Qualitative Urine Negative (Negative)
[2020-09-01] MEDS: sodium chloride 0.9% 1,000 ML 30 ML IV (09:41)
[2020-09-01] MEDS: ketorolac 30 mg/mL INJ IVP (09:41)
--- NOTE | 2020-09-01 09:53 | P.ANESUD_ITS ---
Pre-Anesthetic Update Pre-Anesthetic Assessment: Date of Surgery/Procedure: 09/01/20 Preop Marily gnosis: undesired fertility Proposed Procedure: Operation Date: 09/01/20 10:10 Proposed Procedures p Lap Fulg,Removal of Tubes Sterilization 48889 Z30.2(Not Applicable) - Tree Pulido MD Any changes to Pre-Anesthetic Assessment?: No Last Intake: Intake Last Liquid Date 08/31/20 Last Solid Date 08/31/20 Labs Last 48hrs: Laboratory Results - last 48 hr 08/28/20 09/01/20 Unknown 09:10 Urine HCG, Qual Cancelled Negative Vitals: Temperature 98.7 F 09/01/20 09:05 Temperature Source Temporal Artery S can 09/01/20 09:05 Pulse Rate 78 09/01/20 09:05 Pulse Rhythm 09/01/20 09:05 Pulse Strength 3+ Normal 09/01/20 09:05 Respiratory Rate 16 09/01/20 09:05 Blood Pressure 136/79 09/01/20 09:05 Blood Pressure Joana n 98 09/01/20 09:05 Pulse Oximetry 94 09/01/20 09:05 Oxygen Delivery Me thod 09/01/20 09:05 Exam: Pre-Anes Outpt Exam: alert, oriented x 3, clear to auscultation bilaterally and regular rate & rhythm Cardiac Studies: No Data to Display
--- NOTE | 2020-09-01 10:26 | W.PM.OPSUD ---
Surgery/Procedure H&P Update DATE OF PROCEDURE: September 01, 2020 DATE H&P PERFORMED: 08/28/20 H&P UPDATE INFORMATION: I have reviewed H&P completed within last 30 days, I have examined patient prior to procedure, No changes to prior documentation and H&P is in [facility] on date indicated PREOP DIAGNOSIS: undesired fertility PLANNED PROCEDURE: Operation Date: 09/01/20 10:10 Proposed Procedures p Lap Fulg,Removal of Tubes Sterilization 19423 Z30.2(Not Applicable) - Tree Pulido MD Related Problem List Diagnoses (1) Contraception management: Qualifiers: Contraceptive encounter type: sterilization Qualified Code(s): Z30.2 - Encounter for sterilization
--- NOTE | 2020-09-01 11:10 | PM.OP ---
Operative Report Date of procedure: September 01, 2020 Pre-op Diagnosis: undesired fertility Post-op Diagnosis: Undesired fertility Procedure Done: Laparoscopic bilateral tubal fulguration with complete salpingectomy Specimens removed/disposition: Bilateral fallopian tubes Surgeon: Tree Pulido Kinesiology Internship: None Anesthesia: General Estimated blood loss (mL): 5 IV fluids (mL): 800 Complications: None Findings: First-degree uterine prolapse. No adnexal or uterine masses noted. Normal-appearing ovaries bilaterally. No adhesions noted. Brief History: Patient is a 25-year-old female, 3, para 2-0-1-2 who is currently . She presented to the office on 07/31/2020 to discuss sterilization. She had delivered vaginally on 07/12/[address] Mcgraw. She had considered having a sterilization during the , but had been postponed due to Covid. Medicaid consent form has been signed on 07/22/[address] Mcgraw. Following delivery, she is still adamant that she does not want any further children and wants to have the tubes completely removed. I reviewed with her that this is not reversible. Failure rates and risk for ectopic were discussed. Questions were answered and she still wished to proceed with complete removal of tubes. Procedure: Patient was taken to the operating room were general anesthesia was obtained. She was prepped and draped in the usual sterile fashion in the dorsal supine position with legs in Gregorio style stirrups. Sequential compression boots were placed prior to starting the case. Catheter was inserted and bladder was drained. Exam under anesthesia was performed and patient was found to have first-degree uterine prolapse. No palpable masses noted. Weighted speculum was placed in the vagina and the cervix was grasped with a single-tooth tenaculum. A ZUMI was placed. The infraumbilical region was injected with 2% lidocaine with epinephrine. Skin incision was made with the knife in the lower edge of the navel and a size 5 trocar and sheath were inserted under direct visualization using an Optiview type technique. Trocar was removed and replaced with a laparoscope confirming intra-abdominal placement. The abdomen was inflated with carbon dioxide. The anterior abdominal wall was inspected and noted to be free of adhesions. In the left and right lower quadrants lateral to the inferior epigastric vessels, the skin was injected with 2% lidocaine with epinephrine. Skin incisions were made with a knife and a 5 mm trocar and sheath were inserted under direct visualization at each site. The pelvis was thoroughly inspected and appeared normal. Using the Voyant sealing device, starting on the left side at the fimbriated end of the tube, the mesosalpinx was sealed and cut along the length of the tube. At the proximal end of the tube, the tube itself was sealed and cut. The fallopian tube was brought out through the port. Using the Voyant sealing device, starting on the right side at the fimbriated end of the tube, the mesosalpinx was sealed and cut along the length of the tube. At the proximal end of the tube, the tube itself was sealed and cut. The fallopian tube was brought out through the port. The dissection area was thoroughly inspected and noted to be hemostatic. The abdomen was deflated and the ports removed. The 5 mm sites were closed with single stitches of 4-0 Vicryl suture. Skin glue was applied.. The ZUMI was removed and there was minimal bleeding from the tenaculum site. Patient tolerated the procedure well. Sponge, needle and instrument counts were correct. DRAINS: None POSTOPERATIVE STATUS: The patient was transferred to the recovery room in satisfactory condition. DISPOSITION: Discharge to home when criteria was met. FOLLOWUP APPOINTMENT: Followup appointment is scheduled in my office on 09/17/2020. MEDICATIONS: Patient received prescriptions for: [place] 5/325 mg, 1 to 2 tablets every 6 hours as needed for pain, #20, 0 refills Ibuprofen 800 mg, 1 tablet 3 times a day as needed for pain, #30, 0 refills
[2020-09-01] MEDS: HYDROcodone-acetaminophen 5-325 mg Tablet 1 TAB PO (11:45)
--- NOTE | 2020-09-01 11:52 | ANE.PACU2 ---
Inpatient post-anesthesia follow up: Airway intact: Yes Vital signs: Temperature 97.7 F Pulse Rate 67 Respiratory Rate 18 Blood Pressure 121/80 Pulse Oximetry 97 Oxygen Delivery Me thod Room Air Oxygen Flow Rate 8 Fraction of Inspir ed Oxygen Hydration adequate: Yes Nausea and vomiting: No Pain level: 2 Mental status: Baseline
== END 2020-09-01 12:28 | disposition home or self-care (01) ==
PROVIDERS: Anesthesiology; PCP Nurse Practitioner Family; Visit Provider Obstetrics & Gynecology
PROC: (CPT 58661; principal; 2020-09-01 10:10)
DX: Z30.2 Encounter for sterilization (principal); E66.01 Morbid (severe) obesity due to excess calories; E28.2 Polycystic ovarian syndrome; F17.210 Nicotine dependence, cigarettes, uncomplicated
CPT/HCPCS: 58661; 81025; 84703; 85025; 88302; J0330; J1100; J1885; J2405; J2704; J3010; J3490; J7030

== ENCOUNTER → 2021-02-22 12:06 | Outpatient (BNVA) | payer MEDICAID, SELFPAY | PROVIDERS: PCP Nurse Practitioner Family; Visit Provider Nurse Practitioner Family | DX: Z12.4 Encounter for screening for malignant neoplasm of cervix (principal); Z78.9 Other specified health status | CPT/HCPCS: 88175 ==

== ENCOUNTER 2021-04-26 09:58 | Outpatient (CLI) | payer MEDICAID, SELFPAY ==
--- NOTE | 2021-04-26 10:10 | XR_ITS ---
WS: [id number] RIGHT FOOT: 3 VIEW(S) TECHNIQUE: AP, oblique and lateral. HISTORY: M79.673 - Pain in unspecified foot COMPARISON: 01/14/2013 No acute fracture or dislocation. Normal tarsal/metatarsal alignment. No soft tissue abnormality or bone destruction. XR/XR foot RT min 3V* [id number] IMPRESSION: Normal RIGHT foot.
== END 2021-04-26 09:59 | disposition home or self-care (01) ==
PROVIDERS: PCP Nurse Practitioner Family; Visit Provider Nurse Practitioner Family
DX: M79.671 Pain in right foot (principal)
CPT/HCPCS: 73630

== ENCOUNTER 2021-05-19 13:36 | Outpatient (CLI) | payer MEDICAID, SELFPAY | END 2021-05-19 13:37 | disposition home or self-care (01) | LOC: SPT 13:36 | PROVIDERS: PCP Nurse Practitioner Family; Visit Provider Podiatrist Foot & Ankle Surgery | DX: Z46.89 Encounter for fitting and adjustment of other specified devices (principal); M72.2 Plantar fascial fibromatosis | CPT/HCPCS: 97760; L4397 ==

== ENCOUNTER → 2021-05-26 10:39 | Outpatient (BNVA) | payer MEDICAID, SELFPAY | PROVIDERS: PCP Nurse Practitioner Family; Visit Provider Nurse Practitioner Family | DX: Z51.81 Encounter for therapeutic drug level monitoring (principal) | CPT/HCPCS: 80053; 80061; 85025 ==

== ENCOUNTER → 2021-06-03 09:41 | Outpatient (BNVA) | payer MEDICAID, SELFPAY | PROVIDERS: PCP Nurse Practitioner Family; Visit Provider Nurse Practitioner Family | DX: R73.09 Other abnormal glucose (principal); D72.829 Elevated white blood cell count, unspecified | CPT/HCPCS: 83036; 85025 ==

== ENCOUNTER 2021-10-08 07:44 | Outpatient (CLI) | payer MEDICAID, SELFPAY ==
--- NOTE | 2021-10-08 07:55 | XR_ITS ---
WS: [id number] Thoracic spine, 3 views, 10/08/2021 Clinical Data: M54.6 - Pain in thoracic spine Comparison: None. Findings: No compression fractures are seen. The disc heights are normal. The paravertebral regions are normal. XR/XR thoracic spine 3V* [id number] Impression: Negative thoracic spine.
== END 2021-10-08 07:45 | disposition home or self-care (01) ==
LOC: RAD 07:47
PROVIDERS: PCP Nurse Practitioner Family; Visit Provider Nurse Practitioner Family
DX: M54.6 Pain in thoracic spine (principal)
CPT/HCPCS: 72072

== ENCOUNTER → 2021-11-23 07:59 | Outpatient (BNVA) | payer MEDICAID, SELFPAY | PROVIDERS: PCP Nurse Practitioner Family; Visit Provider Nurse Practitioner Family | DX: R73.09 Other abnormal glucose (principal) | CPT/HCPCS: 80053; 80061; 83036 ==

== ENCOUNTER → 2025-04-25 12:07 | Outpatient (BNVA) | payer BC, SELFPAY | PROVIDERS: PCP Registered Nurse; Visit Provider Registered Nurse | DX: E28.2 Polycystic ovarian syndrome (principal) | CPT/HCPCS: 80048; 80061; 84402; 84403; 84443; 85025 ==